=== PATIENT | male | born 1960 ===

== ENCOUNTER 2023-12-14 14:42 | Emergency (ER) | payer BC ==
[2023-12-14] MEDS: Sodium Chloride 0.9% 1,000 ML IV SCH (15:24)
[2023-12-14] MEDS: Sodium Chloride 0.9% 10 ML Syringe FLUSH PRN (15:24)
[2023-12-14] MEDS: Ondansetron 4 MG/2 ML SDV IVPUSH ONE (15:25)
[2023-12-14 15:36] LABS: BASOPHILS ABSOLUTE AUTO 0.1 K/mm3 (0.0-0.2); BASOPHILS PERCENT AUTO 0.3 % (0.0-1.0); EOSINOPHILS ABSOLUTE AUTO 0.4 K/mm3 (0.0-0.4); EOSINOPHILS PERCENT AUTO 2.2 % (0.0-6.0); HEMATOCRIT 46.2 % (42.0-52.0); HEMOGLOBIN 16.1 gm/dl (14.0-18.0); IMMATURE GRAN ABSOLUTE AUTO 0.08 K/mm3 (0.00-0.05); IMMATURE GRAN PERCENT AUTO 0.4 % (0.0-0.4); LYMPHOCYTES ABSOLUTE AUTO 5.2 K/mm3 (1.0-4.8); LYMPHOCYTES PERCENT AUTO 25.9 % (24.0-44.0); MEAN CORPUSCULAR HEMOGLOBIN 31.3 pg (28.0-32.0); MEAN CORPUSCULAR HGB CONC 34.8 g/dl (32.0-36.0); MEAN CORPUSCULAR VOLUME 89.9 fl (83.0-99.0); MEAN PLATELET VOLUME 11.1 fl (9.4-12.4); MONOCYTES ABSOLUTE AUTO 2.1 K/mm3 (0.0-0.8); MONOCYTES PERCENT AUTO 10.5 % (0.0-8.0); NEUTROPHILS ABSOLUTE AUTO 12.2 K/mm3 (1.8-7.7); NEUTROPHILS PERCENT AUTO 60.7 % (41.0-71.0); PLATELET COUNT,PLT 305 K/mm3 (150-400); RED BLOOD CELL COUNT 5.14 M/mm3 (4.52-5.90); WHITE BLOOD CELL COUNT,WBC 20.12 K/mm3 (3.9-11.3)
[2023-12-14] MEDS: Sodium Chloride 0.9% 1,000 ML IV ONE (15:48)
[2023-12-14 16:04] LABS: A/G RATIO 0.9 (1-2); ALBUMIN 3.9 g/dl (3.4-5.0); ANION GAP 32.1 (5-15); BILIRUBIN TOTAL 0.5 mg/dL (0.2-1.0); BUN/CREATININE RATIO 7.3 (14-18); C-REACTIVE PROTEIN 3.58 mg/dL (<0.30); CALCIUM 8.6 mg/dL (8.5-10.1); CREATININE 17.9 mg/dL (0.7-1.3); EST CRCL DRUG DOSING (CG) 4.5 mL/min; MAGNESIUM 2.7 mg/dL (1.8-2.4); POTASSIUM,K 4.1 mEq/L (3.5-5.1); PROTEIN TOTAL,TP 8.2 g/dl (6.4-8.2)
[2023-12-14] MEDS: Norepinephrine 4 MG in Dextrose 5% in Water 246 ML IV SCH (16:30)
[2023-12-14] MEDS: Lactated Ringers 1,000 ML IV ONE (16:30)
[2023-12-14] MEDS: cefTRIAXone 2 GM in Sodium Chloride 0.9% 100 ML IV ONE (16:35)
[2023-12-14 17:22] LABS: LACTIC ACID 1.1 mmol/L (0.4-2.0)
[2023-12-14] MEDS: Lactated Ringers 1,000 ML IV SCH (18:50)
[2023-12-14] MEDS: LORazepam 2 MG/ML SDV IVPUSH ONE (18:50)
== END 2023-12-14 19:00 ==
LOC: JD.ED 14:42
DX: A41.9 Sepsis, unspecified organism (principal); N17.9 Acute kidney failure, unspecified; R65.21 Severe sepsis with septic shock
CPT/HCPCS: 36415; 71045; 74176; 80053; 82947; 83605; 83690; 83735; 84484; 85025; 86140; 87040; 93005; 96361; 96365; 96366; 96368; 96375; 99285; J0696; J2060; J2405; J3490; J7030; J7060; J7120; 93010; 99291